=== PATIENT | male | born 1965 | race Caucasian/White ===

== ENCOUNTER 2019-12-11 18:19 | Inpatient (IN) ==
[2019-12-11] MEDS ORDERED: MORPHINE 4 MG/1 ML VIAL IV STA (20:53)
[2019-12-11] MEDS ORDERED: KETOROLAC 30 MG/1 ML VIAL IV STA (20:53)
[2019-12-11] MEDS ORDERED: PIPERACILLIN/TAZOBACTAM 4,500 MG in SODIUM CHLORIDE 0.9% 100 ML IV STA (20:53)
[2019-12-11] MEDS ORDERED: VANCOMYCIN INJ 1,250 MG in SODIUM CHLORIDE 0.9% 250 ML IV STA (20:53)
[2019-12-11] MEDS ORDERED: SODIUM CHLORIDE 0.9% 500 ML IV STA (20:54)
[2019-12-11] MEDS ORDERED: MAGNESIUM HYDROXIDE SUSP 30 ML UDCUP PO PRN (21:37)
[2019-12-11] MEDS ORDERED: FAMOTIDINE 20 MG TABLET PO PRN (21:37)
[2019-12-11] MEDS ORDERED: ZALEPLON 5 MG CAPSULE PO PRN (21:37)
[2019-12-11] MEDS ORDERED: ONDANSETRON 4 MG/2 ML VIAL IV PRN (21:37)
[2019-12-11 21:56] LABS: Basophils % 0.3 % (0.0-0.8); Eosinophils # 0.1 10*3/uL (0.0-0.87); Eosinophils % 1.1 % (0.00-10.9); Hematocrit 41.4 VOL% (42.0-52.0); Hemoglobin 13.4 GM/DL (14.0-18.0); Immature Granulocytes % 0.2 %; Immature Granulocytes Absolute 0.02 #; Lymphocytes # 1.8 10*3/uL (1.4-4.0); Mean Corpuscular HGB Conc 32.4 GM/DL (32-36); Mean Corpuscular Volume 89.6 FL (87-102); Mean Platelet Volume 10.4 FL (9.6-12.0); Monocytes % 9.4 % (1.7-12.7); Platelet Count 307 T/CUMM (130-400); Red Blood Count 4.62 MC/CUMM (3.8-5.5); Red Cell Distribution Width 13.2 % (9.3-17.3); White Blood Count 10.2 T/CUMM (4-12)
[2019-12-11 22:11] LABS: Calcium 8.8 MG/DL (8.5-10.1); Osmolality,Calculated 265.2 MOS/KG (273-304)
[2019-12-11 23:01] LABS: Sedimentation Rate-Westergren 79 MM/HR (0-20)
[2019-12-12] MEDS: DEXTROSE 5% LACTATED RINGERS 1,000 ML IV SCH ×3 (00:06→14:19)
[2019-12-12] MEDS: MORPHINE 4 MG/1 ML VIAL IV PRN ×4 (06:03→17:21)
[2019-12-12] MEDS: VANCOMYCIN INJ 1,250 MG in SODIUM CHLORIDE 0.9% 250 ML IV SCH ×2 (12:51→23:56)
[2019-12-12] MEDS ORDERED: BUPIVACAINE 0.5% 50 ML VIAL ONE (14:03)
[2019-12-12] MEDS ORDERED: LIDOCAINE 2% 5 ML VIAL ONE (14:57)
[2019-12-12] MEDS ORDERED: fentaNYL 100 MCG/2 ML VIAL ONE (14:57)
[2019-12-12] MEDS ORDERED: LACTATED RINGERS 1,000 ML IV ONE (14:57)
[2019-12-12] MEDS ORDERED: SEVOFLURANE 1 UNIT/15 MINUTE INH ONE (14:57)
[2019-12-12] MEDS ORDERED: propofoL 200 MG/20 ML VIAL IV ONE (14:57)
[2019-12-12] MEDS: DOCUSATE SODIUM 100 MG CAPSULE PO SCH (21:37)
[2019-12-13] MEDS: MORPHINE 4 MG/1 ML VIAL IV PRN ×6 (05:14→23:51)
[2019-12-13] MEDS: DOCUSATE SODIUM 100 MG CAPSULE PO SCH ×2 (08:21→22:11)
[2019-12-13] MEDS: VANCOMYCIN INJ 1,250 MG in SODIUM CHLORIDE 0.9% 250 ML IV SCH ×2 (11:52→17:00)
[2019-12-14] MEDS: VANCOMYCIN INJ 1,250 MG in SODIUM CHLORIDE 0.9% 250 ML IV SCH ×2 (02:49→09:15)
[2019-12-14] MEDS: MORPHINE 4 MG/1 ML VIAL IV PRN (02:53)
[2019-12-14] MEDS: DOCUSATE SODIUM 100 MG CAPSULE PO SCH (09:15)
[2019-12-14 12:00] VITALS: BP 152/103
== END 2019-12-14 15:17 | disposition home or self-care (01) | DRG 580 ==
LOC: N.ED 18:19 → N.EDINP 21:37 → N.3E 22:45
PROVIDERS: ADMIT Orthopaedic Surgery; ATTEND Orthopaedic Surgery